=== PATIENT | female | born 1965 | race Caucasian/White ===

== ENCOUNTER 2020-04-29 21:02 | Inpatient (IN) ==
[2020-04-29 21:39] LABS: Urine Bilirubin Negative (NEGATIVE); Urine Blood 25 /ul (NEGATIVE); Urine Ketone Negative (NEGATIVE); Urine Nitrite Negative (NEGATIVE); Urine Protein Negative (NEGATIVE); Urine Specific Gravity 1.025 SP.GR. (1.005-1.010); Urine Urobilinogen Normal (NORMAL)
[2020-04-29] MEDS ORDERED: ONDANSETRON HCL/PF 2 MG/ML VIAL IV ONE (21:57)
[2020-04-29] MEDS ORDERED: NALBUPHINE HCL 10 MG/ML AMPUL IV ONE ×2 (21:57→23:24)
[2020-04-29] MEDS ORDERED: NORMAL SALINE 1,000 ML IV ONE (21:57)
[2020-04-29 21:58] LABS: Urine Appearance Cloudy (CLEAR); Urine Bacteria None Seen; Urine Color Yellow; Urine RBC 0-5 /hpf (0-5); Urine WBC None Seen /hpf (0-5)
--- NOTE | 2020-04-29 21:58 | ERNOTE ---
Abdominal HPI - General Chief Complaint: Abdominal Pain Time Seen by Provider: 04/29/20 21:48 Source: patient Exam Limitations: no limitations - Immun/Allergies/Home Medications Immunizatons: IMMUNIZATION HX Immunizations Up to Date Yes History of Influenza Vaccine Yes Hx Pneumococcal Vaccination No Allergies/Adverse Reactions: Allergies meperidine [From Demerol] Allergy (Verified 04/29/20 21:24) itching Sulfa (Sulfonamide Antibiotics) Allergy (Verified 04/29/20 21:24) rash Home Medications: HOME MEDICATIONS ibuprofen 200 mg tablet 800 mg PO TID-QID PRN tab 10/30/18 [Last Taken Unknown] - History of Present Illness Narrative: Patient presents with lower abdominal pain which is waxing and waning but is constant in between. She rates it a 10 out of 10. She states she has been constipated she tried to go earlier and only got a small amount. Timing: getting worse Quality: moderate, severe, cramping Modifying Factors - (Worsens): Present: lying down Review of Systems - Review of Systems Constitutional: Absent: recent illness, fever EYE: Absent: vision changes ENT: Absent: nose congestion, nasal drainage Respiratory: Absent: shortness of breath, cough Cardiology: Absent: chest pain, palpitations Gastrointestinal/Abdominal: Present: See HPI. Absent: nausea Genitourinary: Absent: frequency, dysuria Musculoskeletal: Absent: back pain, muscle pain Skin: Absent: rash Neurological: Absent: headache, dizziness/light-headedness Endocrine: Absent: excessive sweating Medical History (Last Reviewed 04/29/20 @ 21:55 by Modesto Manning DO) Depression Onset Date: Unknown Surgical History: Surgical History (Last Reviewed 04/29/20 @ 21:55 by Modesto Manning DO) H/O elbow surgery right elbow "tennis elbow surgery" H/O excision of ganglion cyst Onset Date: Unknown right hand History of tonsillectomy Onset Date: Unknown Family History: Family History (Last Reviewed 04/29/20 @ 21:55 by Modesto Manning DO) Mother Cancer liver Father Cancer lung Brother Alive and well Sister Cancer cervical Social History: (Last Reviewed 04/29/20 @ 21:55 by Modesto Manning DO) Social History: Marital status: household members: children current occupational status: employed current occupation: [employer] Highest level of school completed/degree received: high school graduate Service: No Tobacco: Smoking Status: Never smoker Alcohol: alcohol intake: current details: rarely Substance Use: substance use type: does not use Dietary Habits: caffeine: No Physical Exam - Physical Exam General Appearance: Present: wd/wn, alert, mild distress Head Exam: Present: normal inspection, no evidence of injury Neck: Present: normal inspection, nontender Respiratory: Present: no respiratory distress, normal breath sounds, lungs clear Cardiovascular/Chest: Present: regular rate, rhythm, no murmur Gastrointestinal/Abdominal: Present: tenderness - Bilateral lower quadrants, abnormal bowel sounds - Hypoactive, rebound - Mild. Absent: guarding Back Exam: Present: normal inspection, normal range of motion, no CVA tenderness, no vertebral tenderness Extremity Exam: Present: normal inspection, normal range of motion, no edema Neurological Exam: Present: alert, oriented, normal mood/affect, no motor/sensory deficits Skin Exam: Present: normal color, warm/dry Lymphatic Exam: Present: no adenopathy Progress - Results and Orders Patient's Lab Results:: I have reviewed the patient's lab results. Results and Orders: Laboratory Tests 04/29/20 04/29/20 04/29/20 21:32 22:30 22:30 WBC 13.5 H Hgb 12.8 Hct 40.2 Plt Count 240 Neutrophils % 89.7 H Sodium 141 Potassium 3.8 Chloride 105 BUN 23 Creatinine 0.84 Random Glucose 139 H Lactic Acid, Venous Calcium 9.2 Total Bilirubin 0.7 AST 27 ALT 43 Alkaline Phosphatase 84 Amylase 43 Lipase 60 L Urine Color Yellow Urine Appearance Cloudy Urine pH 6.0 Ur Specific [place] 1.025 Urine Glucose (UA) Negative Urine Ketones Negative Urine Blood 25 H Urine Nitrate Negative Ur Leukocyte Esterase Negative Urine Culture Comments No culture indicated 04/29/20 22:30 WBC Hgb Hct Plt Count Neutrophils % Sodium Potassium Chloride BUN Creatinine Random Glucose Lactic Acid, Venous 1.1 Calcium Total Bilirubin AST ALT Alkaline Phosphatase Amylase Lipase Urine Color Urine Appearance Urine pH Ur Specific [place] Urine Glucose (UA) Urine Ketones Urine Blood Urine Nitrate Ur Leukocyte Esterase Urine Culture Comments Laboratory Tests 04/30/20 03:00 SARS-CoV-2 (PCR) Not detected - Vital Signs Patient's Vital Signs:: I have reviewed the patient's vital signs. Vital Signs: Vital Signs 04/29/20 21:19 Temperature 37.2 C Pulse Rate 97 Respiratory Rate 16 Blood Pressure 131/78 O2 Sat by Pulse Oximetry 99 - X-Ray X-Ray #1 X-Ray: abdomen Interpretation: Reviewed by me X-ray Comments: Impression: Nonobstructive bowel gas pattern. No free air. Moderate stool retention. Electronically signed by Chandler Oreilly D.O.. - CT/Ultrasound CT/Ultrasound Narrative: CT abdomen pelvis with IV and oral contrast: 1. Small amount of free intraperitoneal air is noted. There is some extraluminal gas bubbles adjacent to the sigmoid colon with adjacent haziness/stranding and a small amount of fluid. Overall findings suggest perforated sigmoid diverticulitis as cause of free air. 2. No drainable fluid collection - Progress/Reassessment Chief Complaint: Abdominal Pain Progress Note-Subjective: 04/30/20 03:[address] Agee he agrees with admission to medicine and he will consult. I spoke with Dr. Lebron he agrees with admission. Departure Clinical Impression: Diverticulitis large intestine Qualifiers: Diverticulitis bleeding: without bleeding Diverticulitis complication: with perforation and without abscess Qualified Code(s): K57.20 - Diverticulitis of large intestine with perforation and abscess without bleeding - Departure Disposition: Still a patient Condition: Fair
[2020-04-29 22:40] LABS: Hematocrit 40.2 % (37.0-47.0); Hemoglobin 12.8 gm/dL (12.5-16.0); Mean Cell Volume 92.6 fl (78-100); Mean Corpuscular Hemoglobin 29.5 pg (27-31); Mean Corpuscular Hgb Conc 31.8 g/dl (32-36); Mean Platelet Volume 11.5 fl (8-12.5); Neutrophil # 12.1 K/mm3 (1.3-6.0); Neutrophil % 89.7 % (42-75.0); Platelet Count 240 K/mm3 (150-450); Red Blood Count 4.34 M/mm3 (4.2-5.4); Red Cell Distribution Width 12.4 % (11.5-14.0); White Blood Count 13.5 K/mm3 (4.0-10.5)
[2020-04-29 22:53] LABS: Anion Gap 13.2 mmol/L (6.8-13.8); BUN/Creatinine Ratio 27.4 (9.0-21.6); Bilirubin, Total 0.7 mg/dL (0.0-1.1); Ca. Corrected For Albumin 8.9 mg/dL (8.4-10.2); Calcium * 9.2 mg/dL (7.9-10.9); Carbon Dioxide 26.6 mmol/L (24-32.6); Potassium 3.8 mmol/L (3.4-4.6); Total Protein 7.3 gm/dL (6.2-8.2)
[2020-04-29] MEDS ORDERED: DIATRIZOATE MEGLUMINE, SODIUM 30 ML BTL PO ONE (23:24)
[2020-04-30] MEDS ORDERED: ONDANSETRON HCL/PF 2 MG/ML VIAL IV ONE (01:01)
[2020-04-30] MEDS ORDERED: MORPHINE SULFATE 2 MG/ML DISP.SYRIN IV ONE (03:02)
[2020-04-30] MEDS: MORPHINE SULFATE 2 MG/ML DISP.SYRIN IV PRN ×3 (04:07→08:40)
[2020-04-30] MEDS ORDERED: RINGER'S SOLUTION,LACTATED 1,000 ML IV PRN (04:25)
[2020-04-30] MEDS ORDERED: PIPERACILLIN SODIUM/TAZOBACTAM 3.375 GM in DEXTROSE 5 % IN WATER 100 ML IV SCH ×2 (07:15)
[2020-04-30] MEDS ORDERED: PANTOPRAZOLE SODIUM 40 MG in NORMAL SALINE 100 ML IV SCH (07:30)
[2020-04-30] MEDS ORDERED: metroNIDAZOLE/SODIUM CHLORIDE 500 MG/100 ML BAG IV SCH (07:30)
--- NOTE | 2020-04-30 07:48 | CONS ---
[facility] - General Date of Service: 04/30/20 Narrative: The patient states that yesterday at about 1 PM she started having lower abdominal pain. It was sudden onset. The pain then became constant with waves of exacerbation. She presented to the emergency room. She was found to have abdominal tenderness, elevated white blood cell count, a CT scan of the abdomen and pelvis was obtained. The scan was initially read by teleradiology. The emergency room physician contacted me and relayed findings of perforation adjacent to the sigmoid colon with mesenteric stranding. There was no mention of free abdominal air in other parts of the abdomen on that conversation. This is contained in the report scanned into the chart. My recommendation was the patient be admitted to the medical service for IV antibiotics and serial exams with a surgical consultation. Subsequent to this the patient had nausea and vomiting and a nasogastric tube was placed. The patient also had at least 1 episode of unresponsiveness. The patient was sent to the floor with an IV and nasogastric tube. No antibiotics were ordered. She was given pain medication Source: patient, RN/MD, RN notes reviewed, old records Exam Limitations: no limitations - History of Present Illness Initial Comments: The patient states that she has trouble with her bowels all the time. 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 She only moves her bowels every 2 or 3 days. She is not sure what foods make her bowels move better. She does not have a regular physician. She has never had a colonoscopy. She presented to the emergency room in February. She was apparently having trouble having a bowel movement and then had a syncopal episode. She injured her face and the ER visit concentrated on that--- scans of the brain. The patient states she is still having severe pain in the lower abdomen. It hurts to lay flat. It hurts to cough. Her vital signs have remained normal. There has been minimal yellow NG output She has urinated once for a specimen. She has not had a bowel movement or passed gas Timing/Duration: other Modifying Factors - (Worsens): Reports: movement Modifying Factors - (Improves): Reports: immobilization Associated Symptoms: vomiting Allergies/Adverse Reactions: Allergies meperidine [From Demerol] Allergy (Verified 04/29/20 21:24) itching Sulfa (Sulfonamide Antibiotics) Allergy (Verified 04/29/20 21:24) rash Home Medications: Home Medications Medication Instructions Recorded Last Taken ibuprofen 200 mg tablet 800 mg PO TID-QID PRN tab 10/30/18 04/29/20 08:30 Medications - Medications Current Medications: Current Medications Lactated Ringer's (Lactated Ringers) 1,000 mls @ 125 mls/hr IV .Q8H PRN PRN Reason: HYDRATION Stop: 05/30/20 04:26 Last Admin: 04/30/20 04:47 Dose: 125 mls/hr Documented by: Morphine Sulfate (Morphine Sulfate 2 Mg/Ml Disp.Syrin) 2 mg IV Q30M PRN PRN Reason: Pain Stop: 05/30/20 04:01 Last Admin: 04/30/20 06:39 Dose: 2 mg Documented by: Review of Systems - Review of Systems Generalized/Overall Review: Absent: Chills, Fever EENTM: Present: No Symptoms Reported, Other - The NG tube is uncomfortable Respiratory: Absent: Cough, Shortness of Breath Cardiac: Present: Other - She reports "vagal episodes" she has had one episode here where her eyes rolled back and she became unresponsive briefly. Absent: Chest Pain, Palpitations Abdominal: Present: Vomiting, Abdominal Pain, Constipation Genitourinary: Present: No Symptoms Reported Musculoskeletal: Present: No Symptoms Reported Neurological: Present: Other - "Vagal" episodes Skin: Present: No Symptoms Reported Endocrine: Present: No Symptoms Reported Physical Examination - Exam Vital Signs: Vital Signs - Last Taken Temp 36.7 C 04/30/20 06:50 Pulse 83 04/30/20 06:50 Resp 10 L 04/30/20 06:50 BP 115/67 04/30/20 06:50 Pulse Ox 96 04/30/20 06:50 O2 Oxygen Delivery Method Room Air Constitutional: Present: Alert, Oriented x3, Cooperative, Moderate distress ENT Exam: Present: normal ENT inspection, other - Nasogastric tube in good position Eye Exam: bilateral eye: normal inspection Neck: Present: full range of motion, normal inspection Breasts: Present: Exam deferred Respiratory: Present: no respiratory distress Cardiovascular/Chest: Present: regular rate, rhythm Abdomen: Present: rebound tenderness - This is only elicited low in the abdomen, other - Her abdomen is soft. There is percussion tenderness below the umbilicus but not above. Palpation above the umbilicus elicits no guarding, however the patient complains of pain in the left lower quadrant. Her maximal tenderness is across the lower abdomen left greater than right. There is rebound /Rectal: Present: Exam deferred Extremity: Present: normal range of motion, normal inspection Skin Exam: Present: normal color Neurologic: Present: parole hearing officer II-XII nml as tested, no motor/sensory deficits Appearance: Present: appropriate appearance, no memory impairment Eye contact: Present: cooperative, good eye contact, normal speech Thoughts: Present: normal thought pattern - Results and Findings: Lab/Microbiology results last 24 hrs: Abnormal/Pending Laboratory Last 24 HRS 04/29/20 04/29/20 04/29/20 22:30 22:30 21:32 WBC 13.5 H MCHC 31.8 L Immature Gran # (Auto) 0.06 H Neutrophils % 89.7 H Lymphocytes % 4.9 L Neutrophils # 12.1 H Lymphocytes # 0.67 L BUN/Creatinine Ratio 27.4 H Random Glucose 139 H Lipase 60 L Urine Blood 25 H - Assessments/Findings (1) Diverticulitis large intestine Diagnosis(s): The patient has not received an antibiotic, will initiate aerobic and anaerobic coverage immediately. The CT scan had not been officially read by [facility] prior to my seeing the patient on the floor. There is now report that mentions significant gas in other locations other than adjacent to the sigmoid. If the patient does have a significant free perforation she will need an operation. I will discuss the patient with Dr. Lebron. ADDENDUM: Patient has had additional episones of unresponsiveness with long pause on telemetry. Recommend transfer. Discussed with Dr Lebron at 9:40 Am Problem: Acute Qualifiers: Qualified Code(s): K57.20 - Diverticulitis of large intestine with perforation and abscess without bleeding
[2020-04-30] MEDS ORDERED: ONDANSETRON HCL/PF 2 MG/ML VIAL IV PRN (09:34)
--- NOTE | 2020-04-30 09:54 | HP ---
Chief Complaint - Chief Complaint Date of Service: 04/30/20 Time of Service: 09:37 Chief Complaint: abdominal pain History of Present Illness: Patient with abdominal pain, ongoing for close to a week. CT of abdomen consistent with likely bowel perforation. Patient with nausea and vomiting. Pain is fairly constant. She was not started on antibiotics by ER physician. Case accepted by our General Surgeon who was noted given full details on the patient. While on the floor patient had a vagal syncopal episode. Rhythm change for roughly one minute with close to 30 seconds of no cardiac activity. She has hx of vagal syncope with vomiting but never told about any underlying cardiac issues. She denies any pertinent medical hx besides the syncope at times. Pain is significant, current fairly well controlled at the moment. Working on transfer now. Medical History (Last Reviewed 04/30/20 @ 05:06 by Maria R Cleveland RN) Depression Onset Date: Unknown Surgical History: Surgical History (Last Reviewed 04/30/20 @ 05:06 by Maria R Cleveland RN) H/O elbow surgery right elbow "tennis elbow surgery" H/O excision of ganglion cyst Onset Date: Unknown right hand History of tonsillectomy Onset Date: Unknown Hx of cholecystectomy Family History: Family History (Last Reviewed 04/30/20 @ 05:06 by Maria R Cleveland RN) Mother Cancer liver Father Cancer lung Brother Alive and well Sister Cancer cervical Social History: (Last Reviewed 04/30/20 @ 05:07 by Maria R Cleveland RN) Social History: Marital status: household members: children current occupational status: employed current occupation: [employer] Highest level of school completed/degree received: high school graduate Service: No Tobacco: Smoking Status: Never smoker Alcohol: alcohol intake: current details: rarely Substance Use: substance use type: does not use Dietary Habits: caffeine: No Review Of Systems (GEN) - Review of Systems Generalized/Overall Review: Present: Weakness. Absent: Chills, Fever EENTM: Present: No Symptoms Reported Respiratory: Present: No Symptoms Reported Cardiac: Present: No Symptoms Reported Abdominal: Present: Nausea, Vomiting, Abdominal Pain, Constipation Genitourinary: Present: No Symptoms Reported Musculoskeletal: Present: No Symptoms Reported Neurological: Present: No Symptoms Reported Immunizations: IMMUNIZATION HX Immunizations Up to Date Yes History of Influenza Vaccine Yes Hx Pneumococcal Vaccination No Allergies/Adverse Reactions: Allergies Allergy/AdvReac Type Severity Reaction Status Date / Time meperidine [From Demerol] Allergy itching Verified 04/29/20 21:24 Sulfa (Sulfonamide Allergy rash Verified 04/29/20 21:24 Antibiotics) Home Medications: HOME MEDICATIONS ibuprofen 200 mg tablet 800 mg PO TID-QID PRN tab 10/30/18 [Last Taken 04/29/20 08:30] Exam - Exam Vital Signs: Vital Signs - Last Taken Temp 36.7 C 04/30/20 06:50 Pulse 83 04/30/20 06:50 Resp 10 L 04/30/20 06:50 BP 115/67 04/30/20 06:50 Pulse Ox 96 04/30/20 06:50 Constitutional: Present: Alert, Oriented x3, Cooperative, Moderate distress Eye Exam: bilateral eye: normal inspection, EOMI Neck: Present: non-tender, supple Respiratory: Present: lungs clear, normal breath sounds Cardiovascular/Chest: Present: regular rate, rhythm. Absent: systolic murmur Abdomen: Present: nondistended, tender, guarding Extremity: Present: non-tender, no pedal edema Skin Exam: Present: normal color, warm/dry Neurologic: Present: no motor/sensory deficits, alert, oriented x 3 Appearance: Present: appropriate appearance, appropriate insight Eye contact: Present: cooperative, good eye contact Thoughts: Present: normal thought pattern, normal mood /affect Diagnostic Studies: Abnormal Lab Results 04/29/20 04/29/20 04/29/20 Range/Units 21:32 22:30 22:30 WBC 13.5 H (4.0-10.5) K/mm3 MCHC 31.8 L (32-36) g/dl Immature Gran # (Auto) 0.06 H (0.000-0.0310) K/mm3 Neutrophils % 89.7 H (42-75.0) % Lymphocytes % 4.9 L (20-51) % Neutrophils # 12.1 H (1.3-6.0) K/mm3 Lymphocytes # 0.67 L (1.5-3.5) k/mm3 BUN/Creatinine Ratio 27.4 H (9.0-21.6) Random Glucose 139 H (70-110) mg/dL Lipase 60 L (73-393) U/L Urine Blood 25 H (NEGATIVE) /ul Laboratory Results WBC 13.5 K/mm3 (4.0-10.5) H 04/29/20 22:30 RBC 4.34 M/mm3 (4.2-5.4) 04/29/20 22:30 Hgb 12.8 gm/dL (12.5-16.0) 04/29/20 22:30 Hct 40.2 % (37.0-47.0) 04/29/20 22:30 MCV 92.6 fl (78-100) 04/29/20 22:30 MCH 29.5 pg (27-31) 04/29/20 22:30 MCHC 31.8 g/dl (32-36) L 04/29/20 22:30 RDW 12.4 % (11.5-14.0) 04/29/20 22:30 Plt Count 240 K/mm3 (150-450) 04/29/20 22:30 MPV 11.5 fl (8-12.5) 04/29/20 22:30 Immature Gran % (Auto) 0.40 % (0.001-0.429) 04/29/20 22:30 Immature Gran # (Auto) 0.06 K/mm3 (0.000-0.0310) H 04/29/20 22:30 Neutrophils % 89.7 % (42-75.0) H 04/29/20 22:30 Lymphocytes % 4.9 % (20-51) L 04/29/20 22:30 Monocytes % 4.9 % (0.0-9) 04/29/20 22:30 Eosinophils % 0.0 % (0.0-3.0) 04/29/20 22:30 Basophils % 0.1 % (0.0-1.0) 04/29/20 22:30 Nucleated RBC % 0.0 k/mm3 (0-1) 04/29/20 22:30 Neutrophils # 12.1 K/mm3 (1.3-6.0) H 04/29/20 22:30 Lymphocytes # 0.67 k/mm3 (1.5-3.5) L 04/29/20 22:30 Monocytes # 0.7 k/mm3 (0.0-1.0) 04/29/20 22:30 Eosinophils # 0.0 k/mm3 (0.0-0.7) 04/29/20 22:30 Absolute Basophils 0.0 k/mm3 (0.0-0.1) 04/29/20 22:30 Sodium 141 mmol/L (132-142) 04/29/20 22:30 Plasma Sodium 142 mmol/L (130-142) 04/29/20 22:30 Potassium 3.8 mmol/L (3.4-4.6) 04/29/20 22:30 Chloride 105 mmol/L (97-106) 04/29/20 22:30 Carbon Dioxide 26.6 mmol/L (24-32.6) 04/29/20 22:30 Anion Gap 13.2 mmol/L (6.8-13.8) 04/29/20 22:30 BUN 23 mg/dL (3-23) 04/29/20 22:30 Creatinine 0.84 mg/dL (0.4-1.4) 04/29/20 22:30 Est GFR (Non-Af Amer) 75 mL/min (60-130) D 04/29/20 22:30 BUN/Creatinine Ratio 27.4 (9.0-21.6) H 04/29/20 22:30 Random Glucose 139 mg/dL (70-110) H 04/29/20 22:30 Lactic Acid, Venous 1.1 mmol/L (0.4-2.0) 04/29/20 22:30 Calcium 9.2 mg/dL (7.9-10.9) 04/29/20 22:30 Calcium Adj for Albumin 8.9 mg/dL (8.4-10.2) 04/29/20 22:30 Total Bilirubin 0.7 mg/dL (0.0-1.1) 04/29/20 22:30 AST 27 U/L (0-48) 04/29/20 22:30 ALT 43 U/L (19-67) 04/29/20 22:30 Alkaline Phosphatase 84 U/L (50-170) 04/29/20 22:30 Total Protein 7.3 gm/dL (6.2-8.2) 04/29/20 22:30 Albumin 4.0 gm/dl (3.4-5.0) 04/29/20 22:30 Amylase 43 U/L (25-115) 04/29/20 22:30 Lipase 60 U/L (73-393) L 04/29/20 22: Urine Color Yellow 04/29/20: Urine Appearance Cloudy (CLEAR) 04/29/20: Urine pH 6.0 pH (5.0-7.0) 04/29/20: Ur Specific [place] 1.025 SP.GR. (1.005-1.010) 04/29/20: Urine Protein Negative mg/dL (NEGATIVE) 04/29/20: Urine Glucose (UA) Negative mg/dL (NEGATIVE) 04/29/20: Urine Ketones Negative mg/dL (NEGATIVE) 04/29/20: Urine Blood 25 /ul (NEGATIVE) H 04/29/20: Urine Nitrate Negative (NEGATIVE) 04/29/20: Urine Bilirubin Negative mg/dl (NEGATIVE) 04/29/20: Urine Urobilinogen Normal EU/dl (NORMAL) 04/29/20: Ur Leukocyte Esterase Negative /ul (NEGATIVE) 04/29/20: Urine RBC 0-5 /hpf (0-5) 04/29/20: Urine WBC None seen /hpf (0-5) 04/29/20: Ur Epithelial Cells 0-5 /hpf (0-5) 04/29/20: Urine Bacteria None seen (NONE) 04/29/20 Urine Culture Comments No culture indicated 04/29/20: SARS-CoV-2 (PCR) Not detected (NotDetected) 04/30/20 03:00 Assessment/Plan - Narrative Narrative: 54-year-old female with no real pertinent past medical history presented to the ER with worsening abdominal pain. Patient has been constipated for last week or so and abdominal pain started last couple days. Severe abdominal pain last night. CT scan of the abdomen showed likely perforation of the sigmoid colon with free air. General surgery was consulted who agreed to manage the case. Today in her room after being transferred to the floor couple hours ago patient had a vagal episode which resulted in syncope and cardiac arrest. No cardiac activity for close to 30 seconds. Rhythm changes for close to a minute. Patient was postictal for a few minutes following regaining consciousness. Patient states that she has history of vasovagal syncope but no underlying cardiac conditions. Discussed this with Dr. Agee and we both agreed patient to be transferred to higher level of care facility with better cardiac monitoring. Patient is currently in normal sinus rhythm on telemetry monitors. Over an hour of critical care management regarding her treatment as well as transfer orders at this time - Assessment/Plan (1) Perforated bowel Problem: Acute (2) Syncope Problem: Acute (3) Vagal arrhythmia Problem: Acute (4) Diverticulitis large intestine Problem: Acute Qualifiers: Diverticulitis bleeding: without bleeding Diverticulitis complication: with perforation and without abscess Qualified Code(s): K57.20 - Diverticulitis of large intestine with perforation and abscess without bleeding
--- NOTE | 2020-04-30 10:20 | DS ---
Transfer Discharge Summary - Diagnosis(s)/Problems (1) Perforated bowel Problem: Acute (2) Syncope Problem: Acute (3) Vagal arrhythmia Problem: Acute (4) Diverticulitis large intestine Problem: Acute - Course Description of Stay: 54-year-old female came to the ER early this morning with abdominal pain that have been constant for the last week. Recently worsening though. CT scan of her abdomen showed perforated large intestine due to severe diverticular disease. Initially been admitted to general surgery here but after he was able to review the case and due to her vagal syncope that she has had, he felt it was best that she was transferred to higher level of care with cardiology available if needed. Patient not currently on any medications, not anticoagulated. Patient is hemodynamically stable though she does bradycardia down when she has vagal maneuvers. She did have a vagal syncope roughly an hour ago with no cardiac activity for 30 seconds or so. This was discussed with Dr. Todd of cardiology at [facility] who was not concerned with this, states that this is a normal vagal syncopal response. Due to more advanced bowel disease with perforation ,Dr. Agee (general surgeon for medicine) felt she need to be transferred to a higher level of care facility anyways. This case was discussed with Dr. Tian who accepted the admission. Patient be transferred to [facility] and will likely undergo surgery to repair her perforated bowel. Patient is n.p.o. at the time and has NG tube placed. Patient currently on Flagyl and Zosyn. 45 minutes spent on discharge today including consults and transfer preparation. Procedures Performed: none - Results and Findings Results and Findings: Laboratory Results - last 24 hr 04/29/20 04/29/20 04/29/20 21:32 22:30 22:30 WBC 13.5 H RBC 4.34 Hgb 12.8 Hct 40.2 MCV 92.6 MCH 29.5 MCHC 31.8 L RDW 12.4 Plt Count 240 MPV 11.5 Immature Gran % (Auto) 0.40 Immature Gran # (Auto) 0.06 H Neutrophils % 89.7 H Lymphocytes % 4.9 L Monocytes % 4.9 Eosinophils % 0.0 Basophils % 0.1 Nucleated RBC % 0.0 Neutrophils # 12.1 H Lymphocytes # 0.67 L Monocytes # 0.7 Eosinophils # 0.0 Absolute Basophils 0.0 Sodium 141 Plasma Sodium 142 Potassium 3.8 Chloride 105 Carbon Dioxide 26.6 Anion Gap 13.2 BUN 23 Creatinine 0.84 Est GFR (Non-Af Amer) 75 D BUN/Creatinine Ratio 27.4 H Random Glucose 139 H Lactic Acid, Venous Calcium 9.2 Calcium Adj for Albumin 8.9 Total Bilirubin 0.7 AST 27 ALT 43 Alkaline Phosphatase 84 Total Protein 7.3 Albumin 4.0 Amylase 43 Lipase 60 L Urine Color Yellow Urine Appearance Cloudy Urine pH 6.0 Ur Specific [place] 1.025 Urine Protein Negative Urine Glucose (UA) Negative Urine Ketones Negative Urine Blood 25 H Urine Nitrate Negative Urine Bilirubin Negative Urine Urobilinogen Normal Ur Leukocyte Esterase Negative Urine RBC 0-5 Urine WBC None seen Ur Epithelial Cells 0-5 Urine Bacteria None seen Urine Culture Comments No culture indicated SARS-CoV-2 (PCR) 04/29/20 04/30/20 22:30 03:00 WBC RBC Hgb Hct MCV MCH MCHC RDW Plt Count MPV Immature Gran % (Auto) Immature Gran # (Auto) Neutrophils % Lymphocytes % Monocytes % Eosinophils % Basophils % Nucleated RBC % Neutrophils # Lymphocytes # Monocytes # Eosinophils # Absolute Basophils Sodium Plasma Sodium Potassium Chloride Carbon Dioxide Anion Gap BUN Creatinine Est GFR (Non-Af Amer) BUN/Creatinine Ratio Random Glucose Lactic Acid, Venous 1.1 Calcium Calcium Adj for Albumin Total Bilirubin AST ALT Alkaline Phosphatase Total Protein Albumin Amylase Lipase Urine Color Urine Appearance Urine pH Ur Specific [place] Urine Protein Urine Glucose (UA) Urine Ketones Urine Blood Urine Nitrate Urine Bilirubin Urine Urobilinogen Ur Leukocyte Esterase Urine RBC Urine WBC Ur Epithelial Cells Urine Bacteria Urine Culture Comments SARS-CoV-2 (PCR) Not detected - Medications Medications: Active Medications Lactated Ringer's (Lactated Ringers) 1,000 mls @ 125 mls/hr IV .Q8H PRN PRN Reason: HYDRATION Stop: 05/30/20 04:26 Last Admin: 04/30/20 04:47 Dose: 125 mls/hr Documented by: Piperacillin Sod/Tazobactam (Sod 3.375 gm/ Dextrose/Water) 100 mls @ 25 mls/hr IV Q8H MACHO; Protocol Stop: 05/30/20 07:16 Last Admin: 04/30/20 08:23 Dose: 25 mls/hr Documented by: Metronidazole (Flagyl) 500 mg in 100 mls @ 100 mls/hr IV Q8H MACHO; Protocol Stop: 05/30/20 07:31 Last Infusion: 04/30/20 09:22 Dose: Infused Documented by: Pantoprazole Sodium 40 mg/ (Sodium Chloride) 100 mls @ 400 mls/hr IV Q24H [facility] Stop: 05/30/20 07:31 Last Infusion: 04/30/20 08:40 Dose: Infused Documented by: Morphine Sulfate (Morphine Sulfate 2 Mg/Ml Disp.Syrin) 2 mg IV Q30M PRN PRN Reason: Pain Stop: 05/30/20 04:01 Last Admin: 04/30/20 08:40 Dose: 2 mg Documented by: Ondansetron HCl (Ondansetron Hcl/Pf 2 Mg/Ml Vial) 4 mg IV Q4H PRN PRN Reason: Nausea Stop: 05/30/20 09:35 Last Admin: 04/30/20 09:37 Dose: 4 mg Documented by: Discontinued Medications Diatrizoate Meglum/Diatrizoate Sod (Diatrizoate Meglumine, Sodium 30 Ml Btl) 60 ml PO ONCE ONE Stop: 04/29/20 23:25 Last Admin: 04/29/20 23:30 Dose: 60 ml Documented by: Sodium Chloride (Sodium Chloride 0.9%) 1,000 mls @ 999 mls/hr IV .Q1H1M ONE Stop: 04/29/20 22:57 Last Infusion: 04/29/20 23:29 Dose: Infused Documented by: Morphine Sulfate (Morphine Sulfate 2 Mg/Ml Disp.Syrin) 2 mg IV ONCE ONE Stop: 04/30/20 03:03 Last Admin: 04/30/20 03:33 Dose: 2 mg Documented by: Nalbuphine HCl (Nalbuphine Hcl 10 Mg/Ml Ampul) 5 mg IV ONCE ONE Stop: 04/29/20 21:58 Last Admin: 04/29/20 22:27 Dose: 5 mg Documented by: Nalbuphine HCl (Nalbuphine Hcl 10 Mg/Ml Ampul) 5 mg IV ONCE ONE Stop: 04/29/20 23:25 Last Admin: 04/29/20 23:32 Dose: 5 mg Documented by: Ondansetron HCl (Ondansetron Hcl/Pf 2 Mg/Ml Vial) 4 mg IV ONCE ONE Stop: 04/29/20 21:58 Last Admin: 04/29/20 22:24 Dose: 4 mg Documented by: Ondansetron HCl (Ondansetron Hcl/Pf 2 Mg/Ml Vial) 4 mg IV ONCE ONE Stop: 04/30/20 01:02 Last Admin: 04/30/20 01:10 Dose: 4 mg Documented by: - Disposition Disposition: Short Term Hospital Inpatient Condition: Stable Discharge Date: 04/30/20 Discharge Time: 10:19
[2020-04-30 11:30] VITALS: BP 114/70
== END 2020-04-30 11:15 | disposition short-term general hospital (02) | DRG 392 ==
LOC: ER 21:02 → MS 04-30 04:10
PROVIDERS: ADMIT Family Medicine; ATTEND Family Medicine